=== PATIENT | male | born 1985 | race Caucasian/White ===

== ENCOUNTER 2025-02-25 11:50 | Outpatient (CLI) | payer OTHER, SELFPAY ==
--- OUTSIDE RECORDS SUMMARY | 2025-02-25 11:54 | XMS_ITS | Clinical Summary ---
Author Organization [facility] Address [address] [place] [address] Care Team Providers Care Ore Grader Name Role Phone Maria Luisa Dunn MD Unavailable [phone] Allergies No known active allergies Medications hydrocortisone 2.5 % creamIndication s:Allergic contact dermatitis, unspecified trigger APPLY 1 APPLICATION TOPICALLY DAILY FOR 10 DAYS. 28.35 g 4 Active Additional Information Patient not taking.Reported on 03/08/2024 Na sulfate-K sulfate-Mg sulfate (SUPREP BOWEL PREP KIT) 17.5-3.13-1.6 GM/177ML SolutionIndicat ions:Hematochez ia,Rectal pain Take 177 mLs by mouth every 12 (twelve) hours. Per GI instructions 354 mL 4 Active Active Problems Problem Noted Date Diagnosed Date Hematochezia 03/11/2024 Rectal pain 03/11/2024 Feeling of incomplete bladder emptying 3 Frequency of urination 09/26/2022 Urgency of micturition 09/26/2022 Lower urinary tract symptoms (LUTS) 07/03/2022 Chronic prostatitis 04/22/2019 Emphysema lung ([facility]) Immunizations Immunization Administration Dates Next Due Pneumococcal (Pneumovax 23) 03/02/2019 Tdap (Adacel) 03/02/2019 Family History Medical History Relation Comments Diabetes Father Thyroid Disease Father Hypothyroid black lung Maternal Grandfather Cancer Maternal Grandmother Arthritis Mother Hypertension Mother Obesity Sister Relation Status Comments Father Alive Maternal Grandfather Maternal Grandmother Mother Alive Paternal Grandfather Paternal Grandmother Sister Alive Social History Tobacco Use Types Packs/Day Years Used Date Smoking Tobacco: Former Cigarettes Q uit: 09/26/2011 Smokeless Tobacco: Current Chew Tobacco Cessation:Counseling Given: No Alcohol Use Standard Drinks/Week Comments Yes 30 (1 standard drink = 0.6 oz pu re alcohol) weekends AUDIT-C Answer Date Recorded Frequency of Alcohol Consumption 4 or more times a week 01/08/2019 Average Number of Drinks Not on file 019 Frequency of Binge Drinking Not on file 12/26 PHQ-2 Answer Date Recorded Patient Health Questionnaire-2 Score 0 03/11/2024 Sex and Gender Information Value Date Recorded Sex Assigned at Not on file Legal Sex Male 8:01 PM CDT Gender Identity Not on file Sexual Orientation Not on file Last Filed Vital Signs Vital Sign Reading Time Taken Comments Blood Pressure 105/73 04/13/2024 11:43 AM CDT Pulse 68 04/13/2024 9:42 AM CDT Temperature 36.6 C (97.9 F) 04/13/2024 9:42 AM CDT Respiratory Rate 16 04/13/2024 11:27 AM CDT Oxygen Saturation 95% 04/13/2024 11:43 AM CDT Inhaled Oxygen Concentration - - Weight 99.8 kg (220 lb) 03/30/2024 1:43 PM CDT Height 165.1 cm (5' 5) 03/30/2024 1:43 PM CDT Body Mass Index 36.61 03/30/2024 1:43 PM CDT Plan of Treatment Health Maintenance Due Date Last Done Comments Annual Physical 02/01/1988 Hepatitis C 2003 Hepatitis B Vaccines (1 of 3 - 19+ 3-dose series) 02/01/2004 HPV Vaccines (1 - 3-dose SCD M series) 02/01/2012 Pneumococcal Vaccine: Pediat rics (0 to 5 Years) and At-Risk Patients (6 to 49 Years) (2 of 2 - PCV) 03/02/2020 03/02/2019 COVID-19 Vaccine (2023-2 5 season) 2024 PHQ-2 (Physician [place]) 07/28/2024 03/11/2024 DTaP, Tdap and Td Vaccines ( 2 - Td or Tdap) 03/02/2029 03/02/2019 Meningococcal B Vaccine Aged Out No l onger eligible based on patient's age to complete this topic Meningococcal Vaccine Aged Out No naren migel eligible based on patient's age to complete this topic RSV Immunizations Under 20 Months Aged Out No longer eligible based on patient's age to complete this topic Additional Health Concerns Infection Onset Date Last Indicated MRSA 08/16/2018 08/16/2018 [facility] Care Teams Ore Grader Relationship Specialty Start Date End Date Maria Luisa Dunn MD [address] [address] UROLOGY 09/04/22
--- OUTSIDE RECORDS SUMMARY | 2025-02-25 11:54 | XMS_ITS | Encounter Summary ---
Author Organization [facility] Address [address] [place] [address] Care Team Providers Care City Sanitarian Name Role Phone Unavailable Primary Care Provider Unavailabl e Encounter Details Date Type Department Care Team (Late st Contact Info) Description 04/20/2024 Lab Requisition [facility] - DermPath Lab [address] [facility], [place] [address] Hayden Baker MD [facility] DERMATOLOG[facility] [address] [place] [phone] Dermatitis, unspecified Social History Tobacco Use Types Packs/Day Years Used Date Smoking Tobacco: Never Assessed Sex and Gender Information Value Date Recorded Sex Assigned at Not on file Legal Sex Male 2:30 PM CDT Gender Identity Not on file Sexual Orientation Not on file documented as of this encounter Plan of Treatment Not on file documented as of this encounter Procedures Procedure Name Priority Date/Time Associated Diagnosis Comments DERMATOPATHOLOGY Routine 04/20/2024 3:33 AM CDT Dermatitis, unspecified documented in this encounter Results * DERMATOPATHOLOGY (04/20/2024 3:33 AM CDT) Case Report Dermatopathology Report Case: [id number] Authorizing Provider: Hayden Baker MD Collected: 04/20/2024 03:33 AM Ordering Location: [facility] - Received: 04/21/2024 12:34 PM DermPath Lab Pathologist: Rupa Mckeon MD Specimen: Skin, right lateral pretibial region 3:38 PM CDT DERMATOPATHOLOGY LABORATORY Final Diagnosis Specimen A. SKIN, right lateral pretibial region: PSORIASIFORM DERMATITIS (L44.8) (see microscopic description and comment) 09/27/202 4 3:38 PM CDT DERMATOPATHOLOGY LABORATORY at 1538 CDT Clinical History Dermatitis unspecified vs Atopic Dermatitis vs Allergic contact Dermatitis 3:38 PM CDT DERMATOPATHOLOGY LABORATORY Gross Description Specimen A: Received is one formalin filled container labeled with the patient's name and designated right lateral pretibial region. The specimen consists of a punch biopsy measuring 4x4x3 mm. Jar 0. 3:38 PM CDT DERMATOPATHOLOGY LABORATORY Microscopic Description Specimen A. SKIN, right lateral pretibial region: There is psoriasiform hyperplasia of the epidermis with focal parakeratosis and spongiosis. The granular layer is focally diminished. There is a superficial, mainly lymphohistiocytic inflammatory infiltrate. The hematoxylin and eosin stain is reviewed; immunohistochemical stains are performed to further characterize this process. Periodic acid-Niko (PAS) stain fails to highlight fungal elements in the available sections. IL36 is weakly expressed within the superficial epidermis. COMMENT: The histological differential diagnosis includes early / partially treated psoriasis and a chronic eczematous dermatitis, the latter of which is slightly favored. Clinicopathologic correlation is recommended. 3:38 PM CDT DERMATOPATHOLOGY LABORATORY Disclaimer An external and internal positive and negative controls are appropriate for the histochemical, immunohistochemical and immunofluorescence stain(s) in this case (if any), except where stated explicitly. The performance characteristics of the stain(s) cited in this report were developed and its performance characteristic determined by the Dermatopathology Laboratory at [facility], directed by Dr. Masha Perez. These tests need not be, and therefore are not, approved by the [place] Food and Drug Administration. The tests are used for clinical purposes. Billing Codes Specimen Charges Stain Charges 67418 1 83000 17409 1 1 4 3:38 PM CDT DERMATOPATHOLOGY LABORATORY Embedded Images 3:38 PM CDT DERMATOPATHOLOGY LABORATORY Pathology/Cytolo gy TISSUE SPECIMEN FROM SKIN / Unknown 04/20/2024 3:33 AM CDT 04/21/2024 12:34 PM CDT Hayden Baker MD LAB - PATHOLOGY/CYTOLOGY ORDFrancis JEWELL Final Result DERMATOPATHOLOGY LABORATORY [facility] - Department of Dermatology [facility] [address] [place] [address], [address] [phone] documented in this encounter Visit Diagnoses Diagnosis Dermatitis, unspecified documented in this encounter
--- OUTSIDE RECORDS SUMMARY | 2025-02-25 11:54 | XMS_ITS | Clinical Summary ---
Author Organization [facility] Address [address] [place] [address] Care Team Providers Care Hard Candy Spinner Name Role Phone Unavailable Primary Care Provider Unavailabl e Source Comments [facility],non-owned Affiliates and Associated Physician Practices is amultiple site organization consisting of ambulatory clinics and hospital sitesin [place], [place], [place] and [place]. This disclosure is being madepursuant to the Care Everywhere program and may not contain all information available regarding this patient. Last updated 18.[facility] Social History Tobacco Use Types Packs/Day Years Used Date Smoking Tobacco: Never Assessed Sex and Gender Information Value Date Recorded Sex Assigned at Not on file Legal Sex Male 2:30 PM CDT Gender Identity Not on file Sexual Orientation Not on file Plan of Treatment Health Maintenance Due Date Last Done Comments LIPID TESTING 1985 HIV SCREENING 02/01/2000 HEPATITIS C SCREENING 01/27/2003 DTAP/TDAP/TD VACCINES (1 - Tdap) 02/01/2004 HEPATITIS B VACCINE (1 of 3 - 19+ 3-dose series) 02/01/2004 HPV VACCINE (1 - 3-dose SCDM series) 02/01/2012 COVID-19 VACCINE (1 - 2023-2 5 season) 2024 DEPRESSION SCREENING 07/28/2024 INFLUENZA VACCINE (#1) 2025 ZOSTER VACCINE (1 of 2) 2035 HIB VACCINE Aged Out No longer eligi ble based on patient's age to complete this topic MENINGOCOCCAL (Group B) VACC INE SHARED DECISION-MAKING Aged Out No longer eligibl e based on patient's age to complete this topic MENINGOCOCCAL GROUPS A/C/Y/W VACCINE Aged Out No longer eligible b ased on patient's age to complete this topic PNEUMOCOCCAL VACCINE Aged Out No long er eligible based on patient's age to complete this topic Insurance AETNA
--- OUTSIDE RECORDS SUMMARY | 2025-02-25 11:54 | XMS_ITS | Encounter Summary ---
Author Organization [facility] Address [address] [place] [address] Care Team Providers Care Safety Representative Name Role Phone Tanja Johnson PA-C Primary Care Provider [phone] Maria Luisa Dunn MD Unavailable [phone] Encounter Details Date Type Department Care Team (Late st Contact Info) Description 01/22/2023 MyChart Message Enc [facility] - [facility] [address] [place], [place] [address] [email or web address] Provider Air Quality Message Social History Tobacco Use Types Packs/Day Years Used Date Smoking Tobacco: Former Cigarettes Q uit: 09/26/2011 Smokeless Tobacco: Current Chew Alcohol Use Standard Drinks/Week Comments Yes 0 (1 standard drink = 0.6 oz pur e alcohol) 1 drink a day AUDIT-C Answer Date Recorded Frequency of Alcohol Consumption 4 or more times a week 01/08/2019 Average Number of Drinks Not on file 019 Frequency of Binge Drinking Not on file 12/26 PHQ-2 Answer Date Recorded Patient Health Questionnaire-2 Score 0 09/26/2022 Sex and Gender Information Value Date Recorded Sex Assigned at Not on file Legal Sex Male 8:01 PM CDT Gender Identity Not on file Sexual Orientation Not on file documented as of this encounter Plan of Treatment Not on file documented as of this encounter Visit Diagnoses Not on filedocumented in this encounter Additional Health Concerns Infection Onset Date Last Indicated Resolved Time MRSA 08/16/2018 08/16/2018 Assessment Noted Time PHQ-9 Depression Total Score: 0 09/28/19 22 9:17 AM LIBRARY CLERK TALKING BOOKS documented as of this encounter Care Teams Safety Representative Relationship Specialty Start Date End Date Tanja Johnson PA-C [address] [facility] [address] [place] [address] PCP - General PHYSICIAN RADIO REPAIRER DOMESTIC 01/08/19 04/30/24 Maria Luisa Dunn MD [address] [facility] [address] [place] [address] UROLOGY 09/04/22 documented as of this encounter
--- OUTSIDE RECORDS SUMMARY | 2025-02-25 11:54 | XMS_ITS | Encounter Summary ---
Author Organization [facility] Address [address] [place] [address] Care Team Providers Care Poultry Pathologist Name Role Phone Tanja Johnson PA-C Primary Care Provider [phone] Maria Luisa Dunn MD Unavailable [phone] Encounter Details Date Type Department Care Team (Late st Contact Info) Description 03/10/2024 MECLUB Message [address] [address] [place] Provider results Social History Tobacco Use Types Packs/Day Years [...] on file documented as of this encounter Functional Status * Over the past 2 weeks, how often have you been bothered by any of the following problems? Question Answer Date of Assessment Author Status Little interest or pleasure in doing things Not at all 03/11/2024 1:01 PM CDT Arina Mo MA Active Feeling down, depressed, or hopeless Not at all 03/11/2024 1:01 PM CDT Jabari Mo MA Active Patient Health Questionnaire-2 Score 0 03/11/2024 1:01 PM CDT Jas Mo MA Active * Question Answer Date of Assessment Author Status Trouble falling or staying asleep, or sleeping too much Not at all 03/11/2024 1:01 PM CDT Arina Mo MA Active Feeling tired or having little energy Not at all 03/11/2024 1:01 PM CDT Arina Mo MA Active Poor appetite or overeating Not at all 03/11/2024 1:01 PM CDT Arina Mo MA Active Feeling bad about yourself - or that you are a failure or have let yourself or your family down Not at all 03/11/2024 1:01 PM CHARLYT Arina Mo MA Active Trouble concentrating on things, such as reading the newspaper or watching television Not at all 03/11/2024 1:01 PM CHARLYT Arina Mo MA Active Moving or speaking so slowly that other people could have noticed? Or the opposite - being so fidgety or restless that you have been moving around a lot more than usual. Not at all 03/11/2024 1:01 PM CHARLYT Arina Mo MA Active Thoughts that you would be better off or hurting yourself in some way Not at all 03/11/2024 1:01 PM CDT Arina Mo MA Active Patient Health Questionnaire-9 Score 0 03/11/2024 1:01 PM CDT Jas Mo MA Active * If you checked off any problems on this questionnaire so far, Question Answer Date of Assessment Author Status How difficult have these problems made it for you to do your work, take care of things at home, or get along with other people? Not difficult at all 03/11/2024 1:01 PM Arina Richardson MA Active documented as of this encounter Plan of Treatment Not on file documented as of this encounter Visit Diagnoses Not on filedocumented in this encounter Additional Health Concerns Infection Onset Date Last Indicated Resolved Time MRSA 08/16/2018 08/16/2018 Assessment Noted Time PHQ-9 Depression Total Score: 0 09/28/19 22 9:17 AM ALBACORE FISHING BOAT CREWMAN documented as of this encounter Care Teams Poultry Pathologist Relationship Specialty Start Date End Date Tanja Johnson PA-C [address] [facility] [facility] [address] [place] [address] PCP - General PHYSICIAN RESERVOIR ENGINEERING MANAGER 01/08/19 04/30/24 Maria Luisa Dunn MD [address] [facility] [address] [place] [address] UROLOGY 09/04/22 documented as of this encounter
--- OUTSIDE RECORDS SUMMARY | 2025-02-25 11:55 | XMS_ITS | Encounter Summary ---
Author Organization [facility] Address [facility] [place] [address] Care Team Providers Care Rn Mental Health Name Role Phone Tanja Johnson PA-C Primary Care Provider [phone] Maria Luisa Dunn MD Unavailable [phone] Encounter Details Date Type Department Care Team (Late st Contact Info) Description 02/25/2024 VoteIt Message Enc [facility]ial[facility] - [facility] [address] [facility], [address] [place] [id number] [facility] Provider reschedule Social History Tobacco Use Types Packs/Day Years [...] Date Recorded Patient Health Questionnaire-2 Score 0 10/10/2023 Sex and Gender Information Value Date Recorded [...] Total Score: 0 09/28/19 22 9:17 AM MOTOR VEHICLE OR CARAVAN SALESPERSON documented as of this encounter Care Teams Rn Mental Health Relationship Specialty Start Date End Date Tanja Johnson PA-C [address] [facility] [address] [place] [address] PCP - General PHYSICIAN ETHICS OFFICER 01/08/19 04/30/24 Maria Luisa Dunn MD [address] [facility] [address] [place] [address] UROLOGY 09/04/22 documented as of this encounter
[2025-02-25 12:17] LABS: Hematocrit 44.2 % (42.0-52.0); Hemoglobin 14.7 g/dL (14.0-18.0); Mean Corpuscular HGB Conc 33.3 g/dl (32-36); Mean Corpuscular Hemoglobin 28.4 pg (26-34); Mean Corpuscular Volume 85.5 fl (80-100); Platelet Count Result 283 k/mm3 (150-375); Red Blood Count 5.17 M/mm3 (4.6-6.20); White Blood Count 7.5 K/mm3 (4.5-10.0)
[2025-02-25 12:36] LABS: Anion Gap 8 mmol/L (4-12); Blood Urea Nitrogen 14 mg/dL (9-20); Calcium 9.2 mg/dL (8.4-10.2); Carbon Dioxide 24 mmol/L (22-30); Chloride 107 mmol/L (98-107); Cholesterol 214 mg/dL (0-200); Estimated Glomerular Filt Rate > 60; Glucose 98 mg/dL (65-110); HDL Direct 47 mg/dL; Potassium 3.9 mmol/L (3.4-5.0); Sodium 139 mmol/L (137-145); Triglycerides 255 mg/dL (<150)
[2025-02-25 13:11] LABS: Thyroid Stimulating Hormone 1.690 uIU/mL (0.465-4.680)
== END 2025-02-25 11:51 | disposition home or self-care (01) ==
LOC: ANHLAB 11:52
PROVIDERS: PCP Family Medicine; Visit Provider Family Medicine
DX: Z13.220 Encounter for screening for lipoid disorders (principal); F41.9 Anxiety disorder, unspecified
CPT/HCPCS: 36415; 80048; 80061; 84443; 85027